=== PATIENT | female | born 1985 | race African-American/Black ===

== ENCOUNTER → 2018-01-17 10:10 | Outpatient (CLI) | payer MEDICAID ==
[~2018-01-17 10:10] MED LIST: BUPROPION XL150 MG PO; FERROUS SULFAT325 MG PO; IBUPROFEN800 MG PO; PERCOCET 5-3251 TAB PO; PRENAVITE1 TAB PO
[2018-01-21 22:44] VITALS: BMI 41.9
== END | disposition home or self-care (01) ==
LOC: D.LDO 10:10
DX: O16.9 Unspecified maternal hypertension, unspecified trimester (principal); Z3A.00 Weeks of gestation of pregnancy not specified

== ENCOUNTER 2018-01-21 20:23 | Inpatient (IN) | payer MEDICAID ==
[~2018-01-21] VITALS: Ht 167.6 cm; Wt 117.7 kg
[2018-01-21] MEDS ORDERED: FERROUS SULFAT325 MG PO (22:13)
[2018-01-21] MEDS ORDERED: PRENAVITE1 TAB PO (22:13)
[2018-01-21] MEDS ORDERED: BUPROPION XL150 MG PO (22:17)
[2018-01-21 22:28] LABS: APPEARANCE CLEAR (CLEAR); BILIRUBIN NEGATIVE (NEGATIVE); COLOR YELLOW (YELLOW); GLUCOSE NEGATIVE (NEGATIVE); KETONE NEGATIVE (NEGATIVE); NITRITE NEGATIVE (NEGATIVE); PROTEIN NEGATIVE (NEGATIVE); UROBILINOGEN NORMAL (NORMAL)
[2018-01-21 22:40] LABS: HEMATOCRIT 31.8 % (36.0-48.0); MCH 22.9 pg (26.0-34.0); MCHC 31.4 g/dL (31.0-37.0); MCV 72.8 fL (80.0-100.0); MEAN PLATELET VOLUME 10.4 fL (7.4-10.4); RBC 4.37 10x6/uL (4.00-5.40); WBC 9.9 10x3/uL (4.8-10.8)
[2018-01-21 22:41] LABS: UDS - AMPHET NEGATIVE QUAL (NEGATIVE); UDS - BARB NEGATIVE QUAL (NEGATIVE); UDS - BENZO NEGATIVE QUAL (NEGATIVE); UDS - COCAINE NEGATIVE QUAL (NEGATIVE); UDS - OPIATE NEGATIVE QUAL (NEGATIVE); UDS - PCP NEGATIVE QUAL (NEGATIVE); UDS - THC NEGATIVE QUAL (NEGATIVE)
[2018-01-21 22:44] VITALS: BP 108/63; Ht 167.6 cm; Wt 117.7 kg
[2018-01-22 01:19] VITALS: BP 125/59
[2018-01-22 04:05] VITALS: BP 122/74
[2018-01-22 07:55] VITALS: BP 100/52
[2018-01-22 12:16] VITALS: BP 107/60
[2018-01-22 17:23] VITALS: BP 117/61
[2018-01-22 19:25] VITALS: BP 111/68
[2018-01-23 05:28] VITALS: BP 105/56
[2018-01-23 06:58] LABS: BASOPHILS 0.1 % (0-2); EOSINOPHILS 1.3 % (0-7); HEMATOCRIT 29.1 % (36.0-48.0); IMMATURE GRANULOCYTES 0.3 % (0-5); LYMPHOCYTES 19.2 % (15-50); MCH 22.5 pg (26.0-34.0); MCHC 30.9 g/dL (31.0-37.0); MCV 72.8 fL (80.0-100.0); MEAN PLATELET VOLUME 11.2 fL (7.4-10.4); MONOCYTES 5.1 % (2-11); PLATELET COUNT 239 10x3/uL (130-400); WBC 7.8 10x3/uL (4.8-10.8)
[2018-01-23 07:33] LABS: RAPID PLASMA REAGIN Non Reactive (Non Reactive)
[2018-01-23 08:05] VITALS: BP 113/68
[2018-01-23 16:34] VITALS: BP 115/68
[2018-01-23 20:10] VITALS: BP 107/64
[2018-01-24 04:07] VITALS: BP 105/72
[2018-01-24 07:49] VITALS: BP 125/70
[2018-01-24] MEDS ORDERED: PERCOCET 5-3251 TAB PO (10:23)
[2018-01-24] MEDS ORDERED: IBUPROFEN800 MG PO (10:24)
== END 2018-01-24 11:18 | disposition home or self-care (01) | DRG 788 ==
LOC: D.LDO 20:23 → D.LD 21:39 → D.SDCHOLD 01-24 07:22 → D.LD 01-24 07:24
PROVIDERS: Obstetrics & Gynecology
PROC: 10D00Z1 Extraction of Products of Conception, Low, Open Approach (ICD-10-PCS; principal; 2018-01-22)
DX: O99.824 Streptococcus B carrier state complicating childbirth (principal); Z3A.38 38 weeks gestation of pregnancy; Z37.0 Single live birth; O76 Abnormality in fetal heart rate and rhythm complicating labor and delivery; O10.92 Unspecified pre-existing hypertension complicating childbirth; O99.214 Obesity complicating childbirth; O34.211 Maternal care for low transverse scar from previous cesarean delivery; O99.02 Anemia complicating childbirth